=== PATIENT | male | born 1995 | race American Indian/Alaskan Native ===

== ENCOUNTER 2018-11-22 17:00 | Emergency (ER) | payer OTHER ==
--- NOTE | 2018-11-22 17:10 | Emergency Department Report ---
Blank Doc - Documentation Documentation: This is a 22-year-old male that presents with chest pain and SOB. Also has sore throat and URI symptoms. Fever in triage. This initial assessment/diagnostic orders/clinical plan/treatment(s) is/are subject to change based on patient's health status, clinical progression and re- assessment by fellow clinical providers in the ED. Further treatment and workup at subsequent clinical providers discretion. Patient/guardians urged not to elope from the ED as their condition may be serious if not clinically assessed and managed. Initial orders include: 1- Patient sent to [facility] for further evaluation and treatment 2- labs 3- motrin 4-CXR
[2018-11-22 17:11] VITALS: BP 160/82
[2018-11-22] MEDS ORDERED: IBUPROFEN PO ONE ×2 (17:11→17:13)
[2018-11-22 17:44] LABS: Basophils % (Auto) 0.3 % (0.0-1.8); Eosinophils % (Auto) 0.3 % (0.0-4.3); Hematocrit 41.7 % (35.5-45.6); Hemoglobin 13.6 gm/dl (11.8-15.2); Lymphocytes # (Auto) 2.5 K/mm3 (1.2-5.4); Lymphocytes % (Auto) 21.6 % (13.4-35.0); Mean Corpuscular HGB Conc 33 % (32-34); Mean Corpuscular Volume 80 fl (84-94); Monocytes # (Auto) 1.9 K/mm3 (0.0-0.8); Platelet Count 261 K/mm3 (140-440); Red Cell Distribution Width 13.5 % (13.2-15.2)
[2018-11-22 17:57] LABS: BUN/Creatinine Ratio 8; Blood Urea Nitrogen 9 mg/dL (9-20); Calcium 9.2 mg/dL (8.4-10.2); Hemolysis Index 0
--- NOTE | 2018-11-22 17:59 | XRay Report ---
PROCEDURE: XR CHEST ROUTINE 2V TECHNIQUE: 2 views of the chest HISTORY: Chest Pain COMPARISONS: None FINDINGS: Normal heart size. Lungs are clear well-expanded without focal infiltrate or consolidation. IMPRESSION: No acute cardiopulmonary disease.. This document is electronically signed by Brenda Watson MD., November 22 2018 05:57:08 PM ET
[2018-11-22 18:11] LABS: INR 0.95 (0.87-1.13)
[2018-11-22 18:17] LABS: Partial Thromboplastin Time 25.8 Sec. (24.2-36.6)
== END 2018-11-22 20:55 | disposition left against medical advice (07) ==
LOC: ED 17:00
DX: R51 Headache (principal); R07.89 Other chest pain; Z53.21 Procedure and treatment not carried out due to patient leaving prior to being seen by health care provider
CPT/HCPCS: 36415; 71046; 80048; 82140; 84484; 85025; 85610; 85730

== ENCOUNTER 2019-01-10 20:44 | Emergency (ER) | payer SELFPAY ==
--- NOTE | 2019-01-10 21:18 | Emergency Department Report ---
Blank Doc - Documentation Documentation: 23 y o male presents to ed states a big piece of his door mirror accidentally b roke and hit his leg around 830 p [facility] eval
[2019-01-10 21:19] VITALS: BP 151/87
[2019-01-10] MEDS ORDERED: XYLOCAINE 1% MPF 5 mL INFILTRATI ONE (21:59)
[2019-01-10] MEDS ORDERED: KEFLEX PO ONE (21:59)
[2019-01-10] MEDS ORDERED: BOOSTRIX IM ONE (21:59)
[2019-01-10] MEDS ORDERED: NORCO 5/325 PO ONE (22:00)
--- NOTE | 2019-01-10 23:12 | XRay Report ---
PROCEDURE: XR TIBIA FIBULA 2V RT TECHNIQUE: Right tibia and fibula radiographs, AP and lateral views. HISTORY: foreign body.... laceration cut with falling mirror COMPARISONS: None. FINDINGS: Fracture (s) and/or Dislocation(s): None. Joint space(s): Normal. Soft tissues: There is focal laceration of the pretibial soft tissues. There is no foreign body.. Bone mineralization: Normal. Foreign bodies: None. IMPRESSION: There is no bony abnormality..There is focal laceration of the pretibial soft tissues. T here is no foreign body.. This document is electronically signed by Sanjay Durham MD., Jan 10 2019 11:10:43 PM ET
--- NOTE | 2019-01-10 23:46 | Emergency Department Report ---
- General Chief Complaint: Wound/Laceration Stated Complaint: LACERATIONS TO R LEG Time Seen by Provider: 01/10/19 21:14 Source: patient Mode of arrival: Ambulatory Limitations: No Limitations - History of Present Illness Initial Comments: pt is s 23 y/o aam who presents for right le laceration 6 cm pt states he was hang in mirror and it fell stiking him in the right LE tibfib pt drove to ed ambulatory bleeding controlled via direct pressure tetanus is unknown there is no numbness no paralysis rom is intact Onset/Timin -: hour(s) Extremity Location: Right: Lower Leg Place: home Patient Tetanus UTD: No Context: accidental Associated Symptoms: pain - Related Data Previous Rx's Medication Instructions Recorded Last Taken Type Acetaminophen/Codeine [Tylenol 1 tab PO Q6H PRN #12 tab 01/10/19 Unknown Rx /Codeine # 3 tab] cephALEXin [Keflex] 500 mg PO Q6HR 10 Days #40 capsule 01/10/19 Unknown Rx Allergies Allergy/AdvReac Type Severity Reaction Status Date / Time No Known Allergies Allergy Verified 01/10/19 20:57 ED Review of Systems ROS: Stated complaint: LACERATIONS TO R LEG Other details as noted in HPI Constitutional: denies: chills, fever Eyes: denies: eye pain, eye discharge, vision change ENT: denies: ear pain, throat pain Respiratory: denies: cough, shortness of breath, wheezing Cardiovascular: denies: chest pain, palpitations Endocrine: no symptoms reported Gastrointestinal: as per HPI. denies: abdominal pain, nausea, diarrhea Genitourinary: denies: urgency, dysuria Musculoskeletal: denies: back pain, joint swelling, arthralgia Skin: other (laceration right leg ) Neurological: denies: headache, weakness, paresthesias Psychiatric: denies: anxiety, depression Hematological/Lymphatic: denies: easy bleeding, easy bruising ED Past Medical Hx - Past Medical History Previous Medical History?: No - Surgical History Past Surgical History?: No - Social History Smoking Status: Never Smoker Substance Use Type: None - Medications Home Medications: Home Medications Medication Instructions Recorded Confirmed Last Taken Type Acetaminophen/Codeine [Tylenol 1 tab PO Q6H PRN #12 tab 01/10/19 Unknown Rx /Codeine # 3 tab] cephALEXin [Keflex] 500 mg PO Q6HR 10 Days #40 capsule 01/10/19 Unknown Rx ED Physical Exam - General Limitations: No Limitations General appearance: alert, in no apparent distress - Head Head exam: Present: atraumatic, normocephalic - Eye Eye exam: Present: normal appearance, PERRL, EOMI Pupils: Present: normal accommodation (on) - ENT ENT exam: Present: mucous membranes moist - Neck Neck exam: Present: normal inspection - Respiratory Respiratory exam: Present: normal lung sounds bilaterally. Absent: respiratory distress - Cardiovascular Cardiovascular Exam: Present: regular rate, normal rhythm, normal heart sounds. Absent: systolic murmur, diastolic murmur, rubs, gallop - GI/Abdominal GI/Abdominal exam: Present: soft, normal bowel sounds - Rectal Rectal exam: Present: deferred - Extremities Exam Extremities exam: Present: full ROM, tenderness (right lower leg ), normal capillary refill. Absent: pedal edema, joint swelling, calf tenderness - Expanded Lower Extremity Exam Right Lower Leg exam: Present: full ROM, tenderness, laceration (6cm flap ). Absent: swelling, abrasion, ecchymosis, deformity, crepidus, dislocation, erythema, palpable cord, Seamus's sign Ankle exam: Present: full ROM. Absent: tenderness Foot/Toe exam: Present: full ROM. Absent: tenderness Neuro vascular tendon exam: Absent: pulse deficit, motor deficit, sensory deficit, tendon deficit Gait: Positive: observed and normal - Back Exam Back exam: Present: normal inspection, full ROM. Absent: tenderness, muscle spasm, rash noted - Neurological Exam Neurological exam: Present: alert, oriented X3, CN II-XII intact, normal gait, reflexes normal. Absent: motor sensory deficit - Psychiatric Psychiatric exam: Present: normal affect, normal mood - Skin Skin exam: Present: warm, dry, intact, normal color. Absent: rash ED Course Vital Signs 01/10/19 21:17 Temperature 98.8 F Pulse Rate 95 H Respiratory 22 Rate Blood Pressure 151/87 O2 Sat by Pulse 97 Oximetry - Laceration /Wound Repair Right Leg Wound Location: lower extremity (6cm ) Wound Length (cm): 6 Wound's Depth, Shape: flap (is) Wound Explored: clean Irrigated w/ Saline (ccs): 60 Betadine Prep?: Yes Anesthesia: 1% Lidocaine Wound Debrided: minimal Wound Repaired With: sutures Suture Size/Type: 3:0, proline Number of Sutures: 12 (running ) Layer Closure?: No (Will be) Progress: Right leg laceration 6 cm flap bleeding is controlled is no movements or tendon damage distal pulses that range of motion is intact with Betadine solution anesthesia with lidocaine plain 0.5 mL wound irrigated with 60 mL of sterile saline wound explored no foreign body, xray no fracture no foreign bodies, wond closed with 3/0 prolene x 12 sutures running all bleeding is controlled, sterile dressing applied pt tolerated procedure with minimal distress pt given wound care instructions ED Medical Decision Making - Medical Decision Making left LE laceration , see procedure note for closure pt tolerated procedure with minimal distress, all bleeding is controlled, pt will follow up with pcp in 2-3 days return to ed if symptoms worsen, Critical care attestation.: If time is entered above; I have spent that time in minutes in the direct care of this critically ill patient, excluding procedure time. ED Disposition Clinical Impression: Laceration of leg Qualifiers: Encounter type: initial encounter Laterality: right Qualified Code(s): S81.811A - Laceration without foreign body, right lower leg, initial encounter Disposition: - TO HOME OR SELFCARE Is pt being admited?: No Does the pt Need Aspirin: No Condition: Stable Instructions: Laceration (ED) Prescriptions: cephALEXin [Keflex] 500 mg PO Q6HR 10 Days #40 capsule Acetaminophen/Codeine [Tylenol /Codeine # 3 tab] 1 tab PO Q6H PRN #12 tab PRN Reason: pain Referrals: [facility] [Outside] - 3-5 Days Forms: Work/School Release Form(ED) Time of Disposition: 23:57
== END 2019-01-11 00:11 | disposition home or self-care (01) ==
LOC: ED 20:44
DX: S81.811A Laceration without foreign body, right lower leg, initial encounter (principal); X58.XXXA Exposure to other specified factors, initial encounter; Y93.89 Activity, other specified; Y92.89 Other specified places as the place of occurrence of the external cause; Y99.8 Other external cause status
CPT/HCPCS: 90471; 90715